=== PATIENT | female | born 1985 | race African-American/Black ===

== ENCOUNTER 2017-11-22 07:55 | Inpatient (IN) | payer OTHER ==
[~2017-11-22] VITALS: Ht 182.9 cm; Wt 75.0 kg
--- NOTE | 2017-11-22 09:04 | History & Physical ---
General Information and HPI MD Statement: I have seen and personally examined AMADOR HUBER and documented this H&P. The patient is a 32 year old female at [39] weeks and [6] days gestation who presented with a chief complaint of [CTX]. Source of Information: patient Exam Limitations: no limitations History of Present Illness: 32yo, 39 6/7wks, c/o ctxs started 2 am today, getting stronger and closer. came to hospital for evaluation, upon arrived to child center, she was found to be fully dilated. pt was late transfer pt to our practice from [facility] , only one visit on 11/02/2017. 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 Past Pregnancies Past Pregnancies: Date of Delivery: 07/14/2014 Gestational Age: 38 wks Length of Labor: 7 hrs Weight: 8 lbs Type of Delivery: vaginal Complications: none Medical History Blood Transfusion Hx: No Neurological: NONE EENT: NONE Cardiovascular: NONE Respiratory: NONE Gastrointestinal: NONE Hepatic: NONE Renal: NONE Musculoskeletal: NONE Psychiatric: NONE Endocrine: NONE Blood Disorders: NONE Cancer(s): NONE SVP OPERATIONS/Reproductive: NONE Surgical History Pertinent Surgical History: appendectomy Past Family/Social History Psychosocial History Smoking Status: Never Smoked ETOH Use: denies use Illicit Drug Use: denies illicit drug use Review of Systems Review of Systems Constitutional: Reports: no symptoms. EENTM: Reports: no symptoms. Cardiovascular: Reports: no symptoms. Respiratory: Reports: no symptoms. GI: Reports: no symptoms. Genitourinary: Reports: see HPI. Musculoskeletal: Reports: no symptoms. Skin: Reports: no symptoms. Neurological/Psychological: Reports: no symptoms. Hematologic/Endocrine: Reports: no symptoms. All Other Systems: Reviewed and Negative Exam & Diagnostic Data Last 24 Hrs of Vital Signs/I&O Vital Signs Date Time Temp Pulse Resp B/P B/P Pulse O2 O2 Flow FiO2 Mean Ox Delivery Rate 11/22 0909 133/70 Intake & Output 11/22 1600 11/22 0800 11/22 0000 Intake Total Output Total Balance Patient 75 kg Weight Obstetric Exam Wgt Gained During : unknown Pelvimetry: adequate Dilation (cm): 10 Effacement (%): 100 Station: 2 Membranes: intact Fluid: unknown Fundal Height (cm): 39 Multiple Gestation? No Contractions: q 2min #1 - FHR Baseline: 130 Category: 1 Estimated Weight: 8 lb 13oz Presentation: vertex Patient for Induction? No Physical Exam: VSS general : NAD Abdomen: soft, gravid, nontender Labs Blood Type & Rh: O NEGATIVE Antibody Screen: negative Hct/Hgb & Platelets #1: 10.9 Hct/Hgb & Platelets #2: unknown Rubella: unknown VDRL #1: negative VDRL #2: unknown HbsAg: negative HIV #1: negative HIV #2 unknown 1 Hr PG: unknown Group B Strep: unknown Initial Ultrasound: IUP at 37 wks Anatomy Ultrasound: unknown Ultrasound for EFW: [id number] Genetic Testing: unknown Assessment/Plan Assessment/Plan: 32yo, 39 6/7wks, labor 1. admit, admisison labs 2. anticipate As Ranked By This Provider Problem List: 1. Core Measures Venous Thromboembolism VTE Risk Factors / No Mechanical VTE Prophylaxis d/t LowRisk-No Interven Req'd No VTE Pharm Prophylaxis d/t LowRisk-No Interven Req'd Attending Review Statement Attending Statement Attending MD Statement: examined this patient, discussed w/nursing
[2017-11-22 09:09] VITALS: BP 133/70
--- NOTE | 2017-11-22 09:09 | Labor & Delivery Summary ---
Delivery Summary Vaginal Delivery: Vaginal: spontaneous Episiotomy/Lacerations: Episiotomy/Lacerations: yes Type: 2nd degree Repair: 2-o vicryl, 3-o vicryl Anesthesia: local Placenta: Placenta: spontanteous, normal, 3 vessel, nuchal cord (x_) (x1) Anesthesia: local Baby's Weight: 9lb3oz Apgars - 1 Min: 9 Apgars - 5 Min: 9 Additional Comments: Patient fully dilated, pushed well, spontaneously deliver a female in cephalic presentation, MARIAM position, nuchal cord 1, easily released, head delivered atraumatically, followed with the shoulder and rest of the body without difficulties, baby vigorous and cried, placed on mother's chest, cord clamped and cut. Placenta delivered spontaneously, intact, three-vessel cord. Second-degree laceration repaired with 3-0 Vicryl using standard technique under local anesthesia. EBL 700 mL. Patient tolerated the procedure well, labs , instrument and needles counts were correct. Patient is in the recovery room in stable condition
[2017-11-22] MEDS ORDERED: PRENATABS RX T1 EACH PO (09:30)
[2017-11-22 10:07] LABS: ABSOLUTE BASOPHIL COUNT 0 /CUMM (0.0-0.2); ABSOLUTE EOSINOPHIL COUNT 0 /CUMM (0.0-0.7); ABSOLUTE GRANULOCYTE CT 11.7 /CUMM (1.4-6.5); ABSOLUTE MONOCYTE COUNT 0.6 /CUMM (0.10-0.60); BASOPHIL % 0.2 % (0.0-2.0); EOSINOPHIL % 0.1 % (0-5); GRANULOCYTE % 81.7 % (42.2-75.2); HEMATOCRIT 35.3 % (37-47); MEAN CORPUSCULAR HGB 22.8 PG (27.0-31.0); MEAN CORPUSCULAR HGB CONC 31.6 G/DL (33.0-37.0); MEAN CORPUSCULAR VOLUME 71.9 FL (81.0-99.0); MEAN PLATELET VOLUME 10.7 FL (7.4-10.4); PLATELET COUNT 158 /CUMM (130-400); RBC DISTRIBUTION WIDTH 15.5 % (11.5-14.5); WHITE BLOOD CELL COUNT 14.3 /CUMM (4.8-10.8)
[2017-11-23 09:23] LABS: ABSOLUTE BASOPHIL COUNT 0.1 /CUMM (0.0-0.2); ABSOLUTE EOSINOPHIL COUNT 0 /CUMM (0.0-0.7); ABSOLUTE GRANULOCYTE CT 11.8 /CUMM (1.4-6.5); BASOPHIL % 0.3 % (0.0-2.0); EOSINOPHIL % 0.2 % (0-5); GRANULOCYTE % 74.3 % (42.2-75.2); HEMATOCRIT 31.1 % (37-47); MEAN CORPUSCULAR HGB 23.2 PG (27.0-31.0); MEAN CORPUSCULAR HGB CONC 32.6 G/DL (33.0-37.0); MEAN CORPUSCULAR VOLUME 71.3 FL (81.0-99.0); MEAN PLATELET VOLUME 10.8 FL (7.4-10.4); PLATELET COUNT 167 /CUMM (130-400); RBC DISTRIBUTION WIDTH 15.3 % (11.5-14.5); RED BLOOD CELL CT 4.36 /CUMM (4.20-5.40); WHITE BLOOD CELL COUNT 15.9 /CUMM (4.8-10.8)
--- NOTE | 2017-11-23 09:38 | PN- Post Delivery/GYN ---
Subjective Subjective: doing well, no complaints Review of Systems Constitutional: Reports: no symptoms. EENTM: Reports: no symptoms. Cardiovascular: Reports: no symptoms. Respiratory: Reports: no symptoms. Gastrointestinal: Reports: no symptoms. Genitourinary: Reports: see HPI. Musculoskeletal: Reports: no symptoms. All Other Systems: Reviewed and Negative Objective Last 24 Hrs of Vital Signs/I&O VSS Physical Exam: VSS CV RRR Lungs CAT B/L Abdomen: soft, nontender, uterus firm, fundus below umbilicus. lochia mild Ext: DCT (-) Current Medications: Current Medications Sig/Krzysztof Start time Last Medication Dose Route Stop Time Status Admin Acetaminophen 650 MG Q4P PRN 11/22 0915 AC PO Bupivacaine HCl 30 ML .STK-MED ONE 11/22 1035 DC EPID 11/22 1036 Bupivacaine HCl 30 ML .[O] 11/22 0945 DC 11/22 OTHER 0835 Docusate Sodium 100 MG BID PRN 11/22 0915 AC 11/22 PO 2046 Ibuprofen 800 MG Q6P PRN 11/22 0915 AC 11/22 PO 2345 Oxycodone/ 1 TAB Q3P PRN 11/22 0915 AC Acetaminophen PO Oxytocin 20 UNITS Q5H 11/22 0915 DC 11/22 Lactated Ringer's 1,000 ML IV 11/22 1414 0835 Last 24 Hrs of Labs/Man: Laboratory Tests 11/23/17 0630: CBC w Diff NO MAN DIFF REQ, RBC 4.36, MCV 71.3 L, MCH 23.2 L, MCHC 32.6 L, RDW 15.3 H, MPV 10.8 H, Gran % 74.3, Lymphocytes % 18.6 L, Monocytes % 6.6, Eosinophils % 0.2, Basophils % 0.3, Absolute Granulocytes 11.8 H, Absolute Lymphocytes 3.0, Absolute Monocytes 1.0 H, Absolute Eosinophils 0, Absolute Basophils 0.1 11/22/17 1405: Urine Opiates Screen < 100, Methadone Screen < 40, Barbiturate Screen < 60, Ur Phencyclidine Scrn < 6.00, Amphetamines Screen < 100, U Benzodiazepines Scrn < 85, Urine Cocaine Screen < 50, Urine Cannabis Screen < 5.00, Urine Color BLDY H , Urine Clarity CLDY H, Urine pH 6.0, Ur Specific [place] 1.025, Urine Protein 100 H, Urine Ketones NEG, Urine Nitrite NEG, Urine Bilirubin NEG, Urine Urobilinogen 0.2, Ur Leukocyte Esterase MOD H, Ur Microscopic SEDIMENT EXAMINED , Urine RBC >75 H, Urine WBC 25-50 H, Ur Epithelial Cells RARE, Urine Bacteria FEW H, Urine Hemoglobin LARGE H, Urine Glucose 100 H Assessment/Plan Assessment/Plan 32yo, s/p , PPD#1 1. encourage ambulation and 2. RT PP care 3. anticipate d/c am
[2017-11-23] MEDS ORDERED: IBUPROFEN800 M1 PO (21:12)
--- NOTE | 2017-11-24 11:08 | PN- OBGYN ---
Surgical Brief Attending Note Brief Attending Note: PT FEELING WELL. AMB / VOID / NAFISA PO. +BF. AFEB, V/SS ABD SOFT NT FF GHAZALA MOD LOCHIA EXT NT NO ED A/P PPD 2 S/P , DOING WELL D/C HOME W/ F/U NEXT WK CBC, 2 WKS OFFICE D/C INSTRUCTIONS REVIEWED
== END 2017-11-24 12:50 | DRG 775 ==
LOC: GNO 07:55
PROVIDERS: Obstetrics & Gynecology
PROC: 0KQM0ZZ Repair Perineum Muscle, Open Approach (ICD-10-PCS; principal; 2017-11-22)
PROC: 10E0XZZ Delivery of Products of Conception, External Approach (ICD-10-PCS; principal; 2017-11-22)
DX: O70.1 Second degree perineal laceration during delivery (principal); Z37.0 Single live birth; O69.81X0 Labor and delivery complicated by cord around neck, without compression, not applicable or unspecified; Z3A.39 39 weeks gestation of pregnancy; O36.63X0 Maternal care for excessive fetal growth, third trimester, not applicable or unspecified
CPT/HCPCS: GNOS; 36415; 80307; 81001; 87389; J2210; J3490; J7120